=== PATIENT | male | born 1965 | race Caucasian/White ===

== ENCOUNTER → 2016-08-28 | Outpatient (CLI) | payer BC ==
[~2016-08-28] MED LIST: GADOBUTROL 10mMol/10ml INJECTION IV ONE; IOTHALAMATE MEGLUMINE 60% (600mg/ml) 30ml INJ IV ONE; LISI10TA7 PO; NORMAL SALINE 0 ML ONE; OMEP10CA2 PO
--- NOTE | 2016-08-28 17:12 | DI ---
Indication:ITS.REASON: S40.912S LT SHOULDER INJURY Procedure:ARTHROGRAM SHOULDER LT W/FL. SHOULDER INJECTION FOR CT ARTHROGRAM: After discussing the details of the procedure, including the risks, the patient wished to proceed. Informed consent was obtained. A preprocedural timeout was performed to confirm the correct patient and procedure. Using aseptic technique, local lidocaine anesthetic, and fluoroscopic guidance throughout, a 22-gauge infiltrating needle was directed through the rotator cuff interval and into the joint of the left shoulder. A small amount of x-ray contrast was injected to confirm proper intra-articular placement of the needle tip. A fluoroscopic image was obtained. Following this, 8 cc of Conray 60 were slowly instilled within the joint of the left shoulder. The needle was removed. Two additional fluoroscopic images were obtained. The patient tolerated this procedure well. Following this, the patient was taken by wheelchair to CT for his scan. Please see the separate CT report. Impression: Technically successful left intra-articular shoulder joint injection for a CT arthrogram. Fluoroscopy dose: 6.45 mGy (Cumulative air kerma) Keyur Mattson RPA/YANY performed this under my personal supervision. .
--- NOTE | 2016-08-28 17:20 | DI ---
Indication: ITS.REASON: S40.912S LT SHOULDER INJURY PROCEDURE: CT UPPER EXTREMITY LT W CONT: Encounter: Initial Comparison: None Findings: Helical imaging was performed through the left shoulder after the uneventful administration of intra-articular contrast. Multiplanar 3-dimensional volume rendered reconstructions were performed on the helically acquired data. Findings: There is cephalad migration of the proximal humerus with probable complete disruption of the distal supraspinatus with retraction to the level of the acromium. There is also a full-thickness tear of the upper aspect of the infraspinatus. No definite tear of the subscapularis. No definite fatty atrophy of the supraspinatus or infraspinatus. There is severe fatty atrophy of the teres minor which could suggest some element of the quadrilateral space syndrome although a definite. Labral cyst is not seen with certainty. MRI might be more sensitive and specific for this if this is suspected. There is no definite fatty atrophy of the deltoid muscle. The underlying bone has normal mineralization and there is no definite bony erosion or bony lesion. No definite displaced fracture, subluxation, or dislocation. Included portions of the ribs and lungs are clear. Impression: Complete disruption of the distal supraspinatus with retraction to the acromium. Full-thickness tear of the upper is infraspinatus without a definite subscapularis tear. Possible fatty atrophy of the teres minor which could suggest compression of the posterior branch of the axillary nerve. .
== END ==
LOC: IMA 13:19
PROVIDERS: ATTEND Family Medicine
DX: S46.012A Strain of muscle(s) and tendon(s) of the rotator cuff of left shoulder, initial encounter (principal); W19.XXXA Unspecified fall, initial encounter; Y93.9 Activity, unspecified; Y92.9 Unspecified place or not applicable; Y99.9 Unspecified external cause status; M62.512 Muscle wasting and atrophy, not elsewhere classified, left shoulder
CPT/HCPCS: 23350; 73201; 77002; Q9961

== ENCOUNTER 2016-09-25 09:48 | Day surgery (SDC) | payer BC ==
[~2016-09-25] VITALS: Ht 170.2 cm; Wt 102.7 kg
[2016-09-25] VITALS (21 sets, daily range): BP systolic 117–150; BP diastolic 62–89; PULSE 74–103; RESP 12–22; TEMP 96.8–98.1; O2SAT 91–96; Ht 170.2 cm; Wt 102.7 kg
[~2016-09-25 09:48] MED LIST changes: +CEFAZOLIN 1 GRAM INJECTION IV ONE; -GADOBUTROL 10mMol/10ml INJECTION IV ONE; -IOTHALAMATE MEGLUMINE 60% (600mg/ml) 30ml INJ IV ONE; +LIDOCAINE 1% (10mg/ml) 2ml SDV INJ ONE; +LR 1,000 ML IV SCH; -NORMAL SALINE 0 ML ONE
--- OUTSIDE RECORDS SUMMARY | 2016-09-25 09:52 | XMS REPORT | Continuity of Care Document ---
Author Author [facility] Organization 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 06/12/2014 Naomi Del Rosario MD F 426.6 OTHER HEART BLOCK 06/12/2014 Naomi Del Rosario MD F 427.89 CARDIAC DYSRHYTHMIAS NEC 06/12/2014 Naomi Del Rosario MD F 487.1 FLU W RESP MANIFEST NEC 06/12/2014 Naomi Del Rosario MD F 780.2 SYNCOPE AND COLLAPSE Procedures Code Description Performed By Performed On 37.72 INITIAL INSERT TRANS LEADS INTO ATRIUM VENTRICLE Reji Shafer MD 06/12/2014 37.83 INITIAL INSERTION OF DUAL-CHAMBER DEVICE Reji Shafer MD 06/12/2014 Results Test Result Range VIRUS RESPIRATORY PROFILE - 06/12/14 19:30 Microbiology BC REFLEX LACTIC ACID - 06/12/14 21:51 LACTIC ACID 1.1 mmol/L 0.5-2.2 RENAL FUNCTION PANEL - 06/12/14 21:51 POTASSIUM 3.9 mmol/L 3.5-5.3 EST GFR (MDRD) > 60 mL/min > 59 ANION GAP 10 mmol/L 5-15 EST CrCl (CG) > 60 mL/min > 59 GLUCOSE 143 mg/dL 70-99 CALCIUM 8.2 mg/dL 8.5-10.1 BLOOD UREA NITROGEN 10 mg/dL 7-20 CREATININE 1.0 mg/dL 0.8-1.3 SODIUM 138 mmol/L 135-148 CHLORIDE 104 mmol/L 98-110 CARBON DIOXIDE 24 mmol/L 21-32 ALBUMIN 3.5 gm/dL 3.4-5.0 PHOSPHORUS 2.2 mg/dL 2.5-4.9 MAGNESIUM - 06/12/14 21:51 MAGNESIUM 2.0 mg/dL 1.8-2.4 CBC W/MANUAL DIFF - 06/12/14 21:51 MEAN CELL HGB 30.1 pg 27.0-33.0 MEAN CELL HGB CONCENTRATION 34.6 g/dL 32.0-37.0 MEAN CELL VOLUME 87.1 fl 80.0-100.0 RED BLOOD CELL 4.95 m/cumm 4.00-6.00 RED CELL DISTRIBUTION WIDTH 12.5 % 11.0- 15.6 WHITE BLOOD CELL 6.1 k/cumm 5.0-10.0 HEMOGLOBIN 14.9 gm/dL 14.0-18.0 HEMATOCRIT 43.1 % 40.0-54.0 PLATELET COUNT 173 k/cumm 150-400 MANUAL DIFF(O) - 06/12/14 21:51 BASOPHIL # 0.1 k/cumm 0.0-0.2 BASOPHIL % 1 % 0-1 BAND % 6 % 0-10 GRANULOCYTE # 3.9 k/cumm 2.0-9.0 LYMPHOCYTE # 1.7 k/cumm 1.0-4.0 LYMPHOCYTE % 28 % 20-30 DIFFERENTIAL MANUAL MONOCYTE # 0.4 k/cumm 0.1-1.0 MONOCYTE % 7 % 4-6 RBC MORPH NOTED SEGMENTED NEUTROPHIL % 58 % 50-70 REACTIVE LYMPH NOTED BLOOD CULTURE - 06/12/14 22:03 Microbiology BLOOD CULTURE - 06/12/14 22:03 Microbiology CBC W/DIFF - 06/13/14 06:46 GRANULOCYTE # 2.8 k/cumm 2.0-9.0 GRANULOCYTE % 57 % 50-75 LYMPHOCYTE # 1.5 k/cumm 1.0-4.0 LYMPHOCYTE % 31 % 20-30 MEAN CELL HGB 31.4 pg 27.0-33.0 MEAN CELL HGB CONCENTRATION 36.3 g/dL 32.0-37.0 MEAN CELL VOLUME 86.6 fl 80.0-100.0 MONOCYTE # 0.6 k/cumm 0.1-1.0 MONOCYTE % 12 % 4-6 RED BLOOD CELL 4.71 m/cumm 4.00-6.00 RED CELL DISTRIBUTION WIDTH 12.4 % 11.0- 15.6 WHITE BLOOD CELL 4.9 k/cumm 5.0-10.0 HEMOGLOBIN 14.8 gm/dL 14.0-18.0 HEMATOCRIT 40.8 % 40.0-54.0 PLATELET COUNT 147 k/cumm 150-400 HEMOGLOBIN A1C - 06/13/14 06:46 HEMOGLOBIN A1C 5.8 % < 5.7 LIPID PANEL - 06/13/14 06:46 CHOLESTEROL/HDL RATIO 4.4 < 5.0 LDL CHOLESTEROL 74 mg/dL < 100 VLDL CHOLESTEROL 28 mg/dL < 30 TRIGLYCERIDES 141 mg/dL < 150 CHOLESTEROL 132 mg/dL < 200 HDL CHOLESTEROL 30 mg/dL > 39 CBC W/MANUAL DIFF - 06/15/14 04:40 MEAN CELL HGB 31.1 pg 27.0-33.0 MEAN CELL HGB CONCENTRATION 35.5 g/dL 32.0-37.0 MEAN CELL VOLUME 87.6 fl 80.0-100.0 RED BLOOD CELL 4.69 m/cumm 4.00-6.00 RED CELL DISTRIBUTION WIDTH 12.4 % 11.0- 15.6 WHITE BLOOD CELL 6.2 k/cumm 5.0-10.0 HEMOGLOBIN 14.6 gm/dL 14.0-18.0 HEMATOCRIT 41.1 % 40.0-54.0 PLATELET COUNT 193 k/cumm 150-400 MANUAL DIFF(O) - 06/15/14 04:40 BASOPHIL # 0.1 k/cumm 0.0-0.2 BASOPHIL % 1 % 0-1 GRANULOCYTE # 3.3 k/cumm 2.0-9.0 LYMPHOCYTE # 2.3 k/cumm 1.0-4.0 LYMPHOCYTE % 37 % 20-30 DIFFERENTIAL MANUAL METAMYELOCYTE % 1 % MONOCYTE # 0.4 k/cumm 0.1-1.0 MONOCYTE % 7 % 4-6 RBC MORPH NORMAL SEGMENTED NEUTROPHIL % 54 % 50-70 RENAL FUNCTION PANEL - 06/15/14 04:40 POTASSIUM 3.5 mmol/L 3.5-5.3 EST GFR (MDRD) > 60 mL/min > 59 ANION GAP 12 mmol/L 5-15 EST CrCl (CG) > 60 mL/min > 59 GLUCOSE 90 mg/dL 70-99 CALCIUM 8.2 mg/dL 8.5-10.1 BLOOD UREA NITROGEN 8 mg/dL 7-20 CREATININE 1.1 mg/dL 0.8-1.3 SODIUM 140 mmol/L 135-148 CHLORIDE 104 mmol/L 98-110 CARBON DIOXIDE 24 mmol/L 21-32 ALBUMIN 3.5 gm/dL 3.4-5.0 PHOSPHORUS 3.1 mg/dL 2.5-4.9 MAGNESIUM - 06/15/14 04:40 MAGNESIUM 1.8 mg/dL 1.8-2.4 CBC W/DIFF - 06/16/14 07:00 EOSINOPHIL # 0.2 k/cumm 0.1-0.5 EOSINOPHIL % 2 % 2-4 GRANULOCYTE # 3.7 k/cumm 2.0-9.0 GRANULOCYTE % 54 % 50-75 LYMPHOCYTE # 2.2 k/cumm 1.0-4.0 LYMPHOCYTE % 32 % 20-30 MEAN CELL HGB 31.0 pg 27.0-33.0 MEAN CELL HGB CONCENTRATION 35.2 g/dL 32.0-37.0 MEAN CELL VOLUME 88.2 fl 80.0-100.0 MONOCYTE # 0.7 k/cumm 0.1-1.0 MONOCYTE % 11 % 4-6 RED BLOOD CELL 4.90 m/cumm 4.00-6.00 RED CELL DISTRIBUTION WIDTH 12.5 % 11.0- 15.6 WHITE BLOOD CELL 6.8 k/cumm 5.0-10.0 HEMOGLOBIN 15.2 gm/dL 14.0-18.0 HEMATOCRIT 43.2 % 40.0-54.0 PLATELET COUNT 196 k/cumm 150-400 METABOLIC PANEL, BASIC - 06/16/14 07:00 POTASSIUM 4.3 mmol/L 3.5-5.3 EST GFR (MDRD) > 60 mL/min > 59 ANION GAP 10 mmol/L 5-15 EST CrCl (CG) > 60 mL/min > 59 GLUCOSE 84 mg/dL 70-99 CALCIUM 8.8 mg/dL 8.5-10.1 BLOOD UREA NITROGEN 9 mg/dL 7-20 CREATININE 1.0 mg/dL 0.8-1.3 SODIUM 140 mmol/L 135-148 CHLORIDE 107 mmol/L 98-110 CARBON DIOXIDE 23 mmol/L 21-32 PROTHROMBIN TIME WITH INR - 06/16/14 07:00 INTERNATIONAL NORMAL RATIO 1.1 0.9-1.1 PROTHROMBIN TIME 11.7 sec 9.3-12.2 Encounters ACCT No. Visit Date/Time Discharge Status Pt. Type Provider Facility Loc./Unit Complaint [id number] 06/12/2014 18:22:00 2014 18:13:00 DIS Inpatient Miguel Ángel RIOS, Naomi Romeo [facility] [id number]
--- OUTSIDE RECORDS SUMMARY | 2016-09-25 09:52 | XMS REPORT ---
Author Author Reji Pardo [facility] [employer] Address Unknown Phone Unavailable Care Team Providers Care Guest Advisor Name Role Phone Reji Pardo CP Unavailable Allergies No Known Allergies Problems Problem Type Condition Code Onset Dates Condition Status Problem Bradycardia 427.89 Active Problem S/P Pacemaker Placement - Dual V45.01 Active Problem Hypertension 401.9 Active Medications No Known Medications Results No Known Results Summary Purpose eClinicalWorks Submission
--- OUTSIDE RECORDS SUMMARY | 2016-09-25 09:52 | XMS REPORT ---
Author Author Reji Pardo Organization [facility] Address [address] [place] [address] Care Team Providers Care Mica Patcher Name Role Phone Char Reji Unavailable [phone] PROBLEMS Type Condition ICD9-CM Code [id number] Code Onset Dates Condition Status SNOMED Code Problem Bradycardia R00.1 Active 47793769 Problem Hypertension 401.9 Active 80913585 Assessment Bradycardia R00.1 Jul, Active 06398767 Problem Bradycardia 427.89 Active 85762422 Problem S/P Pacemaker Placement - Dual V45.01 Active 497812682 ALLERGIES Substance Reaction Event Type Date Status N.K.D.A. Unknown Non Drug Allergy Jul, Unknown SOCIAL HISTORY No smoking Hx information available PLAN OF CARE Activity Details Pending Test AtriaECW 6 Months,Reason: VITAL SIGNS Height 68 in 2016-07-11 Weight 220 lbs 2016-07-11 BMI 33.45 kg/m2 2016-07-11 Oximetry 97 % 2016-07-11 Heart Rate 70 /min 2016-07-11 Blood pressure systolic 118 mm Hg 2016-07-11 Blood pressure diastolic 88 mm Hg 2016-07-11 MEDICATIONS Medication Instructions Dosage Frequency Start Date End Date Duration Status Tylenol 325 MG Orally every 6 hrs 1 tablet as needed 6h Active Omeprazole 10 MG Orally Once a day 2 capsules 24h Active Lisinopril 10 MG Orally Once a day 1 tablet 24h 90 days Active Ranitidine 150 MG Orally qhs Active Loratadine Allergy Relief 10 MG Orally Once a day 1 tablet on the tongue and allow to dissolve 24h Active Lisinopril 10 MG TAKE 1 TABLET BY MOUTH DAILY 30 Active RESULTS No Results PROCEDURES Procedure Date Ordered Related Diagnosis Body Site ELECTROCARDIOGRAM, COMPLETE July 11, 2016 Office Visit, Est Pt., Level 4 July 11, 2016 Ofc Program PM Dual, Staff July 11, 2016 IMMUNIZATIONS No Known Immunizations
--- OUTSIDE RECORDS SUMMARY | 2016-09-25 09:52 | XMS REPORT ---
Author Author Reji Pardo Organization [employer] Address Unknown Phone Unavailable Care Team Providers Care Health And Safety Specialist Name Role Phone Reji Pardo CP Unavailable Allergies No Known Allergies Problems Problem Type Condition Code Onset Dates Condition Status Problem Hypertension 401.9 Active Problem Bradycardia 427.89 Active Problem Bradycardia R00.1 Active Problem S/P Pacemaker Placement - Dual V45.01 Active Medications No Known Medications Results No Known Results Summary Purpose eClinicalWorks Submission
--- OUTSIDE RECORDS SUMMARY | 2016-09-25 09:53 | XMS REPORT ---
Author Author Reji Pardo Organization [facility] Address [address] [place] [address] Care Team Providers Care Transportation Operations Manager Name Role Phone Reji Pardo Unavailable [phone] PROBLEMS Type Condition ICD9-CM Code [id number] Code Onset Dates Condition Status SNOMED Code Problem Bradycardia R00.1 Active 02124435 Problem Hypertension 401.9 Active 25124309 Problem Bradycardia 427.89 Active 57771237 Problem S/P Pacemaker Placement - Dual V45.01 Active 347868421 ALLERGIES Unknown Allergies SOCIAL HISTORY No smoking Hx information available PLAN OF CARE VITAL SIGNS MEDICATIONS Unknown Medications RESULTS No Results PROCEDURES No Known procedures IMMUNIZATIONS No Known Immunizations
[2016-09-25] MEDS ORDERED: ROPIVACAINE 0.5% (5mg/ml) 30ml INJ INJ ONE (10:45)
[2016-09-25] MEDS ORDERED: MIDAZOLAM 2mg/2ml INJECTION IV PRN (10:45)
--- NOTE | 2016-09-25 10:46 | ANESPREOP ---
Anesthesia Record Date and Time DATE: 09/25/16 TIME: 10:45 Proposed Surgical Procedure LT. SHOULDER ARTHROSCOPY/POSS RCR/MOSELEY NPO since: Midnight Allergies: Coded Allergies: No Known Allergies (Unverified , 09/22/16) Ht/Wt/BMI Height: 5 ' 7.00 " Weight: 102.700 kg BMI: 35.5 kg/m2 Vital Signs Date Time Temp Pulse Resp B/P Pulse Ox O2 Delivery O2 Flow Rate FiO2 09/25/16 10:03 98.1 74 16 140/88 95 Room Air Medications Inpatient Medications Current Medications Medications (Trade) Dose Ordered Sig/Elijah Start Time Stop Time Status Last Admin Dose Admin Lactated Ringer's (Lactated Ringers) 1,000 ml @ 50 mls/hr Q20H 09/25/16 07:00 Lisinopril (Lisinopril) 10 Mg Tablet, 10 MG PO DAILY, (Reported) Last Taken: on 09/25/16 0745 Omeprazole (Prilosec) 10 Mg Capsule.dr, 1 CAP PO BID, (Reported) Last Taken: on 09/24/16 2100 Currently on Beta Mackenzie: No Medical/Surgical History Anesthesia PMH: Reports: *Hypertension, Back Problems, Pacemaker (DUE TO PASSING OUT AND HEART STOPPING FOR 20 SECONDS), Reflux, Denies: Anesthesia Reactions (NO AIRWAY ISSUES KNOWN), Cancer, Clotting Problems, Glaucoma, Malignant Hyperthermia, Sleep Apnea Smoking Status: Never smoker Has pt. smoked today?: No Use Chewing Tobacco?: Yes Second Hand Exposure: No Substance Use Type: does not use Alcohol Intake: a few times a week Last Drink: unknown Past Surgical History Orthopedic Surgeries: Abdominal Surgeries: Genitourinary Surgeries: Cardiac Surgeries: Yes - PACEMAKER JUN 2014 Endocrine Surgeries: Reproductive Surgeries: Neurological Surgeries: Ear Surgeries: Nose Surgeries: Throat Surgeries: Yes - TONSILLECTOMY, EGD X 2 Other Surgeries: Yes - PACEMAKER JUN 2014 Anesthesia Adverse Reactions: FOUND none Hx of Motion Sickness: No Pertinent Findings EKG Rhythm: Sinus Rhythm Physical Exam Respiratory: Lungs clear Cardiovascular: FOUND Regular rate, rhythm Airway Assessment Mallampati Score: II TMD: 3 Fingerbreadths Overall Assessment: No Airway Concerns ASA: 2 Plan Anesthesia Plan: GETA Peripheral Nerve Block: Interscalene Block - LT Discussion Discussed risks/options/alternatives of anesthesia and questions answered. Patient consents. Nursing pain assessment noted. Attestation Statement Prior to the delivery of any anesthetic medication, I examined the patient, developed the plan, obtained the patient's consent and discussed the risk and benefits of the procedure with the patient/guardian. JORGE A DOUGHERTY September 25, 2016 10:46
[2016-09-25] MEDS ORDERED: MIDAZOLAM 5mg/5ml INJECTION IV PRN (11:00)
--- NOTE | 2016-09-25 11:34 | ANESPD ---
Peripheral Nerve Blockade Physician: Keyur Torres MD Date: 09/25/16 Discussion Discussed risks/options/alternatives of anesthesia and questions answered. Patient consents. Nursing pain assessment noted. Block Start: 10:55 Block Stop: 11:01 Block Employed: Intrascalene, Single Injection Indication: post-operative pain Approach: left side confirmed Position: supine Patient: Consent, risks/benefits discussed, Informed, post block act. discussed Monitors: EKG, SpO2, NIBP IV Sedation: Yes Sedation: sedate w/meaningful contact Midazolam (mg): 3 Initial Vital Signs First Documented Vital Signs Date Time Temp Pulse Resp B/P Pulse Ox O2 Delivery O2 Flow Rate FiO2 09/25/16 10:03 98.1 74 16 140/88 95 Room Air Post Vital Signs Vital Signs Date Time Temp Pulse Resp B/P Pulse Ox O2 Delivery O2 Flow Rate FiO2 09/25/16 11:15 81 16 123/82 93 Room Air 09/25/16 10:03 98.1 Prep: chlorhexadine/ETOH, sterile technique Ultrasound Used?: Yes Nerve Simulator mA set at: 5 Abates at (mA): 0.4 Muscle Response: No Parathesia/Pain: none Injectate Ropivacaine (%): 0.5 Ropivacaine (mL): 30 Was Epi 1:200,000 Used?: No Injection Injection made incrementally with constant monitoring and aspiration every [5] ml. CHRISTI COOPER CRNA September 25, 2016 11:34
[2016-09-25] MEDS ORDERED: FENTANYL 100mcg/2ml INJECTION ONE (11:55)
[2016-09-25] MEDS ORDERED: PHENYLEPHRINE 10mg/ml INJECTION ONE (12:40)
[2016-09-25] MEDS ORDERED: EPHEDRINE SULFATE 50mg/ml INJECTION ONE (12:40)
[2016-09-25] MEDS ORDERED: ONDA4TAB4 PO (14:04)
[2016-09-25] MEDS ORDERED: OXYC1TAB8 PO (14:04)
--- NOTE | 2016-09-25 14:05 | PDPROCED ---
Immediate Operative Note DATE: 09/25/16 TIME: 14:04 Preop Diagnosis: LEFT SHOULDER ROTATOR CUFF TEAR Postop Diagnosis: Left shoulder massive rotator cuff tear Surgical Procedures: L Arthroscopic RCR Surgeon: Brian Rn Vascular: HUGH Beverly Anesthesia: General (plus regional block) Complications: none Estimated Blood Loss see anesthesia ROSALIND BENJAMIN September 25, 2016 14:05
--- NOTE | 2016-09-25 14:19 | ANESPO ---
Post-Op Note Date 09/25/16 Time: 14:19 Status Pt Participated in Evaluation: Pt participated in person Vital Signs Date Time Temp Pulse Resp B/P Pulse Ox O2 Delivery O2 Flow Rate FiO2 09/25/16 11:40 80 18 122/88 91 Room Air 09/25/16 10:03 98.1 Respiratory Function: Airway patent, Regular respirations Cardiovascular Function: Regular pulse Mental Status: Alert/oriented Pain Level Intensity: 0 Hydration: IV infusing Complications during Recovery None apparent Follow-Up Instructions Instructions Per Surgeon JORGE A DOUGHERTY September 25, 2016 14:19
--- NOTE | 2016-09-26 07:32 | OPNOTEF ---
DATE OF PROCEDURE 09/25/2016 PREOPERATIVE DIAGNOSIS Traumatic left rotator cuff tear. POSTOPERATIVE DIAGNOSES 1. Traumatic left rotator cuff tear (supraspinatus, infraspinatus) with retraction. 2. Left shoulder degenerative type 1 superior labral tear. PROCEDURE 1. Left shoulder arthroscopic rotator cuff repair. 2. Left shoulder arthroscopic debridement, superior labrum. SURGEON Keyur Torres MD BODY CLEANER Tyrone Levy PA-C ANESTHESIA General with regional block. FLUIDS Please refer to Anesthesia chart. EBL Minimal. TOURNIQUET None used. COMPLICATIONS None. CONDITION Stable to Recovery Room. IMPLANTS Celestin & Nephew 5.5 mm HEALICOIL anchor x 4. Celestin & Nephew 5.5 mm MULTIFIX S anchor x 2. DESCRIPTION OF PROCEDURE The patient was identified in the preoperative holding area. The operative extremity was identified and appropriately marked. Risks, benefits, alternatives and potential complications were discussed and informed consent was obtained. The patient was taken to the operating theatre, placed supine on the operating table. Appropriate cardiorespiratory monitors were applied. General anesthesia was induced. A regional block had been placed in preoperative holding. The patient was positioned in a seated beach chair position with all bony prominences well padded. Head and neck were secured in a safe position. Left upper extremity was sterilely prepped and draped in the usual fashion. Surgical time-out was performed, confirmed with myself, the preprint analyst and circulating nurse. Preoperative antibiotics were given. Examination under anesthesia revealed full passive range of motion of the left shoulder. No evidence of instability. No visible atrophy. Standard posterior arthroscopic portal was established. The arthroscope was inserted and the glenohumeral joint was insufflated with saline. Needle localization was utilized to establish an anterior portal in the rotator interval. Subscapularis was found to be intact. Long head biceps tendon was intact in its intraarticular and extraarticular portions. There was moderate fraying of the superior labrum. Probing of this revealed it to be a meniscoid type superior labrum with adequate cartilage overlying the top of the superior labrum and intact biceps anchor. A shaver was introduced and the superior labrum was debrided of any loose labral flaps. The anterior, inferior and posterior hailey were intact. Inferior axillary recess was free of loose bodies or debris. Glenohumeral articular cartilage was well maintained. The supraspinatus and infraspinatus were visibly torn and retracted inferiorly. The teres minor was felt to be intact. The arthroscope was then withdrawn and repositioned in the subacromial space just below the level of the acromion. A lateral portal was established. A thorough bursectomy was performed to include the anterolateral and posterior gutters. Again, the rotator cuff tear was identified. Supraspinatus and infraspinatus were retracted with the infraspinatus to the level of the glenoid. The scope was moved to a lateral portal and an accessory posterolateral portal was created. A grasper was inserted and the edge of the tendon was grasped and pulled laterally. While maintaining tension, careful meticulous releases were performed on both the bursal and articular sides of the cuff to afford additional excursion until we were able to achieve an adequate reduction. At this time a traction suture was passed through the same posterolateral portal for utilization during the case. At this time the scope was moved back to the posterior portal. The footprint of the greater tuberosity was debrided to a bleeding cortical surface. An accessory percutaneous portal was created and the first anchor was placed at the anterior margin of the greater tuberosity just lateral to the articular cartilage. This was a HEALICOIL suture anchor with one tape suture and one standard #2 suture. Both sutures were passed in a horizontal mattress configuration. A second suture was then placed in the central portion of the tuberosity, again just lateral to the articular cartilage. Sutures were again passed in a horizontal mattress configuration. A third anchor was placed at the posterior margin of the greater tuberosity, again passing sutures in the same fashion. The posterior lateral portal was then utilized to place a fourth anchor at the posterior aspect of the greater tuberosity in line with the pole of the inferior infraspinatus just lateral to the bare area. These sutures were passed with the tape suture in a mattress configuration and the #2 suture in a simple fashion lying medial to the mattress in a MAC stitch type configuration. These posterior sutures were then tied which reduced the inferior aspect of the infraspinatus just above the teres minor. Suture tails were cut. The #2 sutures were then tied on the posterior anchor in the greater tuberosity in these suture tails were cut. This was followed by tying of the tape sutures which were then pulled out the accessory cannula and stored for later. A single limb from each of the two front anchors of the #2 suture were then pulled laterally. A static knot was then passed in these and then the alternate sutures were then pulled laterally and applied tension was pulled the static knot into the joint, providing compression between the two anchors across the supraspinatus. These sutures were then tied arthroscopically and the suture tails cut. The anterior tape sutures were then tied as well. A single limb from each tape suture knot was then pulled laterally out the cannula. Soft tissue was cleared from a spot on the anterior aspect of the lateral portion of the greater tuberosity. Sutures were placed through a MULTIFIX S anchor. Sutures were then tensioned in this transosseous equivalent type repair and the anchor was inserted and deployed. Suture tails were then cut. This was then repeated on the posterior aspect of the lateral margin of the greater tuberosity for the remaining tape sutures. Probing of the repair noted a stable repair. We purposely repaired it slightly medialized so as to not place undue tension on the repair. The CA ligament was not notably frayed. There was noted to be ample room in the anterolateral aspect of the shoulder, so no acromioplasty was performed. The shoulder was then copiously lavaged, irrigated and drained. All arthroscopic instruments were removed. Portals were closed with nylon sutures. Sterile dressings were applied followed by an abduction sling. The patient was awakened from anesthesia and taken to the recovery room in stable and satisfactory condition. YASH
== END 2016-09-25 15:30 | disposition home or self-care (01) ==
LOC: NSC 09:48
PROVIDERS: ATTEND Orthopaedic Surgery
DX: S46.012A Strain of muscle(s) and tendon(s) of the rotator cuff of left shoulder, initial encounter (principal); S43.402A Unspecified sprain of left shoulder joint, initial encounter; I10 Essential (primary) hypertension; K21.9 Gastro-esophageal reflux disease without esophagitis; I49.9 Cardiac arrhythmia, unspecified; F17.210 Nicotine dependence, cigarettes, uncomplicated; Z79.899 Other long term (current) drug therapy; Z95.0 Presence of cardiac pacemaker; W20.8XXA Other cause of strike by thrown, projected or falling object, initial encounter
CPT/HCPCS: 29827; 76942; C1713; J0690; J2250; J2370; J3010; J7120